=== PATIENT | female | born 1980 | race Caucasian/White ===

== ENCOUNTER 2016-04-03 09:49 | Outpatient (CLI) | payer OTHER ==
[~2016-04-03] VITALS: Ht 160 cm; Wt 71.8 kg
[~2016-04-03 09:49] MED LIST: NOHOMEMEDS
[2016-04-03 10:04] VITALS: BP 118/68
[2016-04-03] MEDS ORDERED: PRENATAL TABLE1 EAC3 PO (10:13)
== END 2016-04-03 11:18 | disposition home or self-care (01) ==
LOC: LDRP-OP 09:49 → 2WEST 09:50 → LDRP-OP 05-17 09:48
DX: O36.8130 Decreased fetal movements, third trimester, not applicable or unspecified (principal); O99.89 Other specified diseases and conditions complicating pregnancy, childbirth and the puerperium; Z3A.37 37 weeks gestation of pregnancy
CPT/HCPCS: 59025; G0378

== ENCOUNTER 2016-04-26 07:05 | Inpatient (IN) | payer OTHER ==
[2016-04-26] VITALS (29 sets, daily range): BP systolic 98–153; BP diastolic 50–88
[~2016-04-26] VITALS: Ht 160 cm; Wt 74.0 kg
[~2016-04-26 07:05] MED LIST changes: +PRENATAL TABLE1 EAC3 PO
[2016-04-26] MEDS ORDERED: PROBIOTIC1 EAC1 PO (07:52)
[2016-04-26 09:36] LABS: EOSINOPHIL (%) 0.4 % (0-5); EOSINOPHIL COUNT 0.1 K/uL (0-0.3); HEMATOCRIT 36.5 % (36.0-46.0); IMMATURE GRANULOCYTE (%) 0.9 % (0.0-0.7); IMMATURE GRANULOCYTE COUNT 0.1 K/uL; MCHC 32.1 G/DL (30.0-36.0); MCV 90.3 FL (83-99); MEAN PLAT.VOLUME 12.5 uM^3 (9.5-12.4); MONOCYTE (%) 9.5 % (3-12); MONOCYTE COUNT 1.1 K/uL (0-0.8); NEUTROPHIL (%) 80.3 % (45-76); NEUTROPHIL COUNT 9.3 K/uL (1.8-6.4); PLATELET COUNT 166 K/uL (156-360); RBC DIS.WIDTH-CV 13.6 % (11.8-14.6); RBC DIS.WIDTH-SD 45.1 % (39-53); RED BLOOD COUNT 4.04 M/uL (3.80-5.20); WHITE BLOOD COUNT 11.5 K/uL (4.1-10.2)
[2016-04-26] MEDS ORDERED: IBUPROFEN800 MG PO (17:36)
[2016-04-27 07:32] VITALS: BP 118/71
[2016-04-27 07:36] LABS: EOSINOPHIL (%) 0.4 % (0-5); EOSINOPHIL COUNT 0.1 K/uL (0-0.3); HEMATOCRIT 26.3 % (36.0-46.0); IMMATURE GRANULOCYTE (%) 0.8 % (0.0-0.7); IMMATURE GRANULOCYTE COUNT 0.1 K/uL; LYMPHOCYTE COUNT 1.4 K/uL (1.0-2.8); MCH 30.1 PG (29.0-34.0); MCHC 33.1 G/DL (30.0-36.0); MEAN PLAT.VOLUME 12.2 uM^3 (9.5-12.4); MONOCYTE (%) 7.7 % (3-12); MONOCYTE COUNT 1.2 K/uL (0-0.8); NEUTROPHIL COUNT 12.8 K/uL (1.8-6.4); PLATELET COUNT 148 K/uL (156-360); RBC DIS.WIDTH-CV 13.8 % (11.8-14.6); RBC DIS.WIDTH-SD 45.7 % (39-53); RED BLOOD COUNT 2.89 M/uL (3.80-5.20); WHITE BLOOD COUNT 15.6 K/uL (4.1-10.2)
[2016-04-27 14:51] VITALS: BP 114/67
== END 2016-04-27 20:33 | disposition home or self-care (01) | DRG 767 ==
LOC: LDRP-OP 07:05 → 2WEST 07:06 → LDRP-OP 05-17 15:14
PROVIDERS: Advanced Practice Midwife
PROC: 3E0P7GC Introduction of Other Therapeutic Substance into Female Reproductive, Via Natural or Artificial Opening (ICD-10-PCS; principal; 2016-04-26)
PROC: 3E0S3CZ (ICD-10-PCS; principal; 2016-04-26)
PROC: 3E033VJ Introduction of Other Hormone into Peripheral Vein, Percutaneous Approach (ICD-10-PCS; principal; 2016-04-26)
PROC: 10907ZC Drainage of Amniotic Fluid, Therapeutic from Products of Conception, Via Natural or Artificial Opening (ICD-10-PCS; principal; 2016-04-26)
PROC: 00HU33Z Insertion of Infusion Device into Spinal Canal, Percutaneous Approach (ICD-10-PCS; principal; 2016-04-26)
PROC: 10D17ZZ Extraction of Products of Conception, Retained, Via Natural or Artificial Opening (ICD-10-PCS; principal; 2016-04-26)
PROC: 10E0XZZ Delivery of Products of Conception, External Approach (ICD-10-PCS; principal; 2016-04-26)
DX: O48.0 Post-term pregnancy (principal); Z3A.41 41 weeks gestation of pregnancy; Z37.0 Single live birth; O09.523 Supervision of elderly multigravida, third trimester; O73.1 Retained portions of placenta and membranes, without hemorrhage; O69.81X0 Labor and delivery complicated by cord around neck, without compression, not applicable or unspecified; D62 Acute posthemorrhagic anemia; O99.02 Anemia complicating childbirth
CPT/HCPCS: 85025; 88307; C1755; J0295; J0595; J3010; J7050; J7120

== ENCOUNTER 2016-07-01 05:41 | Day surgery (SDC) | payer OTHER ==
[~2016-07-01] VITALS: Ht 157.5 cm; Wt 59.9 kg
[~2016-07-01 05:41] MED LIST changes: +CIPRO500 MG PO; +IBUPROFEN800 MG PO; +PAXIL10 MG PO; +PROBIOTIC1 EAC1 PO
[2016-07-01 06:54] VITALS: BP 136/94
[2016-07-01 09:20] VITALS: BP 146/86
[2016-07-01 10:17] VITALS: BP 134/90
[2016-07-01 10:21] VITALS: BP 136/84
== END 2016-07-01 10:28 | disposition home or self-care (01) ==
LOC: SDC 05:41
DX: N92.0 Excessive and frequent menstruation with regular cycle (principal); Z30.2 Encounter for sterilization; Z82.49 Family history of ischemic heart disease and other diseases of the circulatory system; Z80.0 Family history of malignant neoplasm of digestive organs; Z83.3 Family history of diabetes mellitus; Z87.891 Personal history of nicotine dependence
CPT/HCPCS: 88305; J0330; J1100; J1885; J2250; J2405; J2710; J2765; J3010